=== PATIENT | female | born 1990 | race Caucasian/White ===

== ENCOUNTER 2018-11-09 17:04 | Emergency (ER) | payer OTHER ==
[~2018-11-09] VITALS: Ht 162.6 cm; Wt 83.9 kg
[2018-11-09 17:25] VITALS: BP 122/79
--- NOTE | 2018-11-09 17:25 | NUR ---
ED Nurse Note: walked in to ED due to painful urination for last 2 days. pt also c/o blood in urine. hx of kidney stone., patient is alert and oriented x4, ambulatory with a steady gait, VSS
[2018-11-09 18:05] LABS: APPEARANCE,URINE CLOUDY; BILIRUBIN, URINE NEGATIVE (NEGATIVE); COLOR,URINE PALE YELLOW; GLUCOSE, URINE (UA) NEGATIVE (NEGATIVE); KETONES,URINE NEGATIVE (NEGATIVE); LEUKOCYTE ESTERASE ,URINE 3+ (NEGATIVE); NITRITE,URINE NEGATIVE (NEGATIVE); PH,URINE 6 (4.5-8.0); PROTEIN,URINE 3+ (NEGATIVE); UROBILINOGEN,URINE NORMAL MG/DL (0.0-1.0)
[2018-11-09] MEDS: Phenazopyridine 200mg tab ORAL ONE (18:24)
--- NOTE | 2018-11-09 18:32 | Emergency Room Report ---
History of Present Illness General Chief Complaint: Female Urogenital Problems Source: Family Member Present Illness HPI 07/07 in severity Dysuria x 3 days with hematuria. Pt. was seen at urgent care last Thursday and is currently on day with previously rx'd Cipro. no fevers or chills, hx of renal calculi, no LBP. Denies abdominal pain or tenderness. Denies rashes or genital lesions. Pt. denies suspicion of . Denies low back pain. Denies vaginal d/c or itching. Allergies: Coded Allergies: No Known Allergies (Unverified , 11/09/18) Patient History Past Medical History: see triage record Past Surgical History: none Pertinent Family History: none Last Menstrual Period: 11/06/18 Now: No Reviewed Nursing Documentation: PMH: Agreed; PSxH: Agreed Nursing Documentation-PMH Past Medical History: No History, Except For Hx Gastrointestinal Problems: No - kidney stone Review of Systems All Other Systems: negative except mentioned in HPI Physical Exam Vital Signs Date Time Temp Pulse Resp B/P (MAP) Pulse Ox O2 Delivery O2 Flow Rate FiO2 11/09/18 17:18 98.2 70 18 122/79 98 Room Air Sp02 EP Interpretation: reviewed, normal General Appearance: no apparent distress, alert, GCS 15, non-toxic Head: normocephalic, atraumatic Eyes: bilateral eye normal inspection, bilateral eye PERRL ENT: hearing grossly normal, normal voice Neck: full range of motion Respiratory: lungs clear, normal breath sounds, speaking full sentences Cardiovascular #1: normal peripheral pulses, regular rate, rhythm Gastrointestinal: non tender, soft, non-distended Rectal: deferred Genitourinary: normal inspection, no CVA tenderness, adnexa normal Musculoskeletal: gait/station normal, normal range of motion, non-tender Neurologic: alert, oriented x3, responsive, motor strength/tone normal, sensory intact, normal gait, speech normal, grossly normal Psychiatric: judgement/insight normal Skin: normal color, no rash, warm/dry, well hydrated Lymphatic: no adenopathy Medical Decision Making PA Attestation Dr. Shaikh is my supervising Physician whom patient management has been discussed with. Diagnostic Impression: Primary Impression: UTI (urinary tract infection) Qualified Codes: N30.01 - Acute cystitis with hematuria ER Course 07/07 in severity Dysuria x 3 days with hematuria. Pt. was seen at urgent care last Thursday and is currently on day 9 with previously rx'd Cipro. no fevers or chills, hx of renal calculi, no LBP. Denies abdominal pain or tenderness. Denies rashes or genital lesions. Pt. denies suspicion of . Denies low back pain. Denies vaginal d/c or itching. Ddx considered but are not limited to UTi , Pyelo, STI, Stone, Cystitis Vital signs: are WNL, pt. is afebrile H&PE are most consistent with UTI ORDERS: - UA labs are attached ED INTERVENTIONS: Pt. declines Pyridium. DISCHARGE: At this time pt. is stable for d/c to home. Will provide printed patient care instructions, and any necessary prescriptions. Care plan and follow up instructions have been discussed with the patient prior to discharge. Labs Test 11/09/18 17:52 Urine Color Pale yellow Urine Appearance Cloudy Urine pH 6 (4.5-8.0) Urine Specific Daphne 1.010 (1.005-1.035) Urine Protein 3+ (NEGATIVE) Urine Glucose (UA) Negative (NEGATIVE) Urine Ketones Negative (NEGATIVE) Urine Blood 5+ (NEGATIVE) Urine Nitrite Negative (NEGATIVE) Urine Bilirubin Negative (NEGATIVE) Urine Urobilinogen Normal MG/DL (0.0-1.0) Urine Leukocyte Esterase 3+ (NEGATIVE) Urine RBC 5-10 /HPF (0 - 2) Urine WBC Tntc /HPF (0 - 2) Urine Squamous Epithelial Cells Occasional /LPF Urine Bacteria Few /HPF (NONE) Urine HCG, Qualitative Negative (NEGATIVE) Last Vital Signs Date Time Temp Pulse Resp B/P (MAP) Pulse Ox O2 Delivery O2 Flow Rate FiO2 11/09/18 17:18 98.2 70 18 122/79 98 Room Air Disposition: HOME, SELF-CARE Condition: Stable Scripts Nitrofurantoin Monohyd/M-Cryst* (MACROBID 100 MG*) 100 Mg Capsule 100 MG ORAL EVERY 12 HOURS for 5 Days, #10 CAP Prov: Debbie Stratton 11/09/18 Patient Instructions: Urinary Tract Infection Additional Instructions: Take medications as directed. Follow up with a Primary Care Provider in 3-5 days, even if your symptoms have resolved. --Please review list of primary care clinics, if you do not already have a primary care provider Return sooner to ED if new symptoms occur, or current symptoms become worse. - Please note that this Emergency Department Report was dictated using [employer] billing technology software, occasionally this can lead to erroneous entry secondary to interpretation by the dictation equipment. Debbie Stratton Nov 09, 2018 18:32
[2018-11-09] MEDS ORDERED: NITROFURANTOIN100 M2 ORAL (18:33)
[2018-11-09 18:36] VITALS: BP 120/69
--- NOTE | 2018-11-09 18:37 | NUR ---
ED Nurse Note: Patient is being discharged from medical care with prescriptions. Awake, alert and oriented x3. ID band were removed. Patient ambulated out with all personal belongings with steady gait.
== END 2018-11-09 18:35 | disposition home or self-care (01) ==
LOC: EMR 18:25
DX: N39.0 Urinary tract infection, site not specified (principal)
CPT/HCPCS: 81003; 81025; 87086; 87181; 99283